=== PATIENT | female | born 1995 | race Caucasian/White ===

== ENCOUNTER 2025-02-04 20:32 | Emergency (ER) | payer SELFPAY ==
[2025-02-04] MEDS ORDERED: Metoclopramide HCl 10 MG (2 mL) VIAL ONE (20:55)
[2025-02-04] MEDS ORDERED: diphenhydrAMINE 50 MG/ML VIAL ONE (20:55)
[2025-02-04 21:14] LABS: ALT (SGPT) 35 U/L (Less than 34); AST (SGOT) 32 U/L (11-34); Albumin 4.9 g/dL (3.1-4.5); Alkaline Phosphatase 41 U/L (40-110); Anion Gap 16 mmol/L (10-20); BUN (Urea Nitrogen) 15 mg/dL (7.0-18.7); Bilirubin, Total 0.7 mg/dL (0.3-1.2); Calc. Creatinine Clearance 0 mL/min (70-130); Calcium 9.5 mg/dL (7.8-10.44); Carbon Dioxide 23 mmol/L (22-29); Chloride 101 mmol/L (98-107); Globulin 3.2 g/dL (2.4-3.5); Glucose 103 mg/dL (70-105); Potassium 3.7 mmol/L (3.5-5.1); Sodium 136 mmol/L (136-145)
== END 2025-02-04 21:58 | disposition home or self-care (01) ==
LOC: NAV ERS 20:32
DX: O21.0 Mild hyperemesis gravidarum (principal); Z3A.08 8 weeks gestation of pregnancy
CPT/HCPCS: 80053; 84702; 96365; 96375; J1200; J2765; J7030